=== PATIENT | female | born 1995 | race Caucasian/White ===

== ENCOUNTER 2016-12-14 12:47 | Emergency (ER) | payer OTHER ==
[2016-12-14] MEDS ORDERED: Sodium Chloride 0.9% 1,000 ML IV ONE (13:17)
--- NOTE | 2016-12-14 13:22 | ED Physician Chart ---
ED Chief Complaint/HPI - Patient Information Date Seen:: 12/14/16 Time Seen:: 13:18 Chief Complaint:: abd pain History of Present Illness:: pt here for 3 days of blood streaked stool and pain at LLQ of abdomen. ok motility. no urinary discomfort. no fever. no back pain. eating ok. no n/v/d. no hx of GI bleed. no back pain. no weakness menses regular. child born yrs ago. no irreg menses. Allergies:: Allergies Allergy/AdvReac Type Severity Reaction Status Date / Time No Known Allergies Allergy Verified 12/14/16 12:56 Vitals:: Vital Signs - 8 hr 12/14/16 12:47 Temp 98.1 F HR 76 RR 16 BP 110/66 O2 Sat % 100 Historian:: Patient ED Review of Systems - Review of Systems General/Constitutional: No fever, No chills, No weight loss, No weakness, No diaphoresis, No edema, No loss of appetite Skin: No skin lesions, No rash, No bruising Head: No headache, No light-headedness Eyes: No loss of vision, No pain, No diplopia ENT: No earache, No nasal drainage, No sore throat, No tinnitus Neck: No neck pain, No swelling, No thyromegaly, No stiffness, No mass noted Cardio Vascular: No chest pain, No palpitations, No PND, No orthopnea, No edema Pulmonary: No SOB, No cough, No sputum, No wheezing GI: No nausea, No vomiting, No diarrhea, Pain, No melena, No hematochezia, No constipation, No hematemesis, Other (blood streak stool) G/U: No dysuria, No frequency, No hematuria Musculoskeletal: No bone or joint pain, No back pain, No muscle pain Endocrine: No polyuria, No polydipsia Psychiatric: No prior psych history, No depression, No anxiety, No suicidal ideation Hematopoietic: No bruising, No lymphadenopathy Allergic/Immuno: No urticaria, No angioedema Neurological: No syncope, No focal symptoms, No weakness, No paresthesia, No headache, No seizure, No dizziness, No confusion, No vertigo ED Past Medical History - Past Medical History Past Medical History: No significant medical hx, Other () Social History: Non Smoker Medication: Reviewed Family Medical History - Family Member Mother History Unknown: Yes ED Physical Exam - Physical Examination General/Constitutional: Awake, Well-developed, well-nourished, Alert, No distress, GCS 15, Non-toxic appearing, Ambulatory Head: Atraumatic Eyes: Lids, conjuctiva normal, PERRL, EOMI Skin: Nl inspection, No rash, No skin lesions, No ecchymosis, Well hydrated, No lymphadenopathy ENMT: External ears, nose nl, Nasal exam nl, Lips, teeth, gums nl Neck: Nontender, Full ROM w/o pain, No JVD, No nuchal rigidity, No bruit, No mass, No stridor Respiratory: Nl effort/Exclusion, Clear to Auscultation, No Wheeze/Rhonchi/Rales Cardio Vascular: RRR, No murmur, gallop, rubs, NL S1 S2 GI: No organomegaly, No hernia, Normal BS's, Nondistended, No mass/bruits, No McBurney tenderness Other GI comments:: mild tndr LLQ. no masses. no rebound. nabs. : No CVA tenderness Extremities: No tenderness or effusion, Full ROM, normal strength in all extremities, No edema, Normal digits & nails Neuro/Psych: Alert/oriented, DTR's symmetric, Normal sensory exam, Normal motor strength, Judgement/insight normal, Mood normal, Normal gait, No focal deficits Misc: normal gait, Normal back, No paraspinal tenderness ED Labs/Radiology/EKG Results - Lab Results Results: Laboratory Tests 12/14/16 12/14/16 12/14/16 13:00 13:00 13:25 WBC 7.5 RBC 5.15 H Hgb 12.5 Hct 38.7 L MCV 75.3 L MCH 24.2 L MCHC Differential 32.1 RDW 13.9 Plt Count 145 L MPV 12.6 Neutrophils % 62.0 Lymphocytes % 30.7 Monocytes % 6.9 Eosinophils % 0.2 Basophils % 0.2 PT INR PTT (Actin FS) Sodium Potassium Chloride Carbon Dioxide Anion Gap BUN Creatinine Est GFR ( Amer) Est GFR (Non-Af Amer) BUN/Creatinine Ratio Glucose Calcium Total Bilirubin AST ALT Alkaline Phosphatase Total Protein Albumin Globulin Albumin/Globulin Ratio Urine Source CLEAN C Urine Color YELLOW Urine Clarity CLEAR Urine pH 6.0 Ur Specific [place] 1.025 Urine Protein NEGATIVE Urine Glucose (UA) NEGATIVE Urine Ketones NEGATIVE Urine Blood TRACE Urine Nitrate NEGATIVE Urine Bilirubin NEGATIVE Urine Urobilinogen 0.2 Ur Leukocyte Esterase NEGATIVE Urine RBC 5-10 H Urine WBC 0-2 Ur Epithelial Cells MODERATE Urine Bacteria FEW Urine Mucus FEW Urine Test NEGATIVE 12/14/16 12/14/16 13:25 13:25 WBC RBC Hgb Hct MCV MCH MCHC Differential RDW Plt Count MPV Neutrophils % Lymphocytes % Monocytes % Eosinophils % Basophils % PT 11.4 INR 1.09 PTT (Actin FS) 29.9 Sodium 133 L Potassium 3.6 Chloride 103 Carbon Dioxide 23.6 Anion Gap 10.0 BUN 12 Creatinine 0.5 L Est GFR ( Amer) > 60.0 Est GFR (Non-Af Amer) > 60.0 BUN/Creatinine Ratio 24.0 Glucose 90 Calcium 9.4 Total Bilirubin 0.8 AST 12 L ALT 10 Alkaline Phosphatase 40 Total Protein 7.4 Albumin 4.7 Globulin 2.7 Albumin/Globulin Ratio 1.7 Urine Source Urine Color Urine Clarity Urine pH Ur Specific [place] Urine Protein Urine Glucose (UA) Urine Ketones Urine Blood Urine Nitrate Urine Bilirubin Urine Urobilinogen Ur Leukocyte Esterase Urine RBC Urine WBC Ur Epithelial Cells Urine Bacteria Urine Mucus Urine Test - Radiology Results Results: ct bad/p - few mesenteric nodes, diverticulosis (cant exclude focal diverticulitis less likely), small free fluid in pelvis w suspicion of ruptured rt ovarian cyst (pt has no pain on rt...and very good mobility in general. pain on l is mild) ED Septic Shock - . Is Septic Shock (SBP<90, OR Lactate>4 mmol\L) present?: No - <6hrs of presentation: Vital Signs: Vital Signs - 8 hr 12/14/16 12:47 Temp 98.1 F HR 76 RR 16 BP 110/66 O2 Sat % 100 ED Reassessment (Disposition) - Reassessment Reassessment:: rectal exam performed w LUCAS Landers present. pt has a obvious punctate bleed extra- anal whick expressesd bright red blood when anus is stretched for close view. stool from internal to the punctate bleed seems nrml in color w no gross blood ...although it does test sltly pos for hemeoccult blood. no rectal mass. results reviewed w pt. plan discussed w pt. offered her option of close fu w pmd tmrw vs admit for observation. US machine is broken and unavailable rt now so cant do US. pt aware. offered pt may return at any time if worse. GI bleed seems explained by exam finding. pt appears stable now and not in great discomfort. will give rx for levaquin and 1st dose as precaution given could be assoc mild diverticulitis however I suspect this is a overread by hunter ruiz. pt to return if fever, worse pains, weakness, n/v/d or else worse.. Reassessment Condition:: Improved - Diagnosis Diagnosis:: 1 rectal fissure 2 possible early diverticulitis 3 possible ruptured ovarian cyst - Aftercare/Follow up Instructions Aftercare/Follow-Up Instructions:: Counseled pt regarding lab results/diagnosis & need follow up - Patient Disposition Discharge/Transfer:: Home Condition at Disposition:: Improved
[2016-12-14 13:33] LABS: URINE BILIRUBIN NEGATIVE (NEGATIVE); URINE BLOOD TRACE (NEGATIVE); URINE GLUCOSE (UA) NEGATIVE (NEGATIVE); URINE KETONE NEGATIVE (NEGATIVE); URINE PROTEIN NEGATIVE (NEGATIVE); URINE UROBILINOGEN 0.2 E.U./dL (0.2 - 1.0)
[2016-12-14 13:34] LABS: URINE COLOR YELLOW
[2016-12-14 13:37] LABS: URINE BACTERIA FEW /hpf (NONE SEEN); URINE EPITHELIAL CELLS MODERATE /lpf (FEW); URINE WBC 0-2 /hpf (0-5)
[2016-12-14 13:43] LABS: % BASOPHILS 0.2 % (0.0-2.0); % EOSINOPHILS 0.2 % (0.0-5.0); % LYMPHOCYTES 30.7 % (20.0-50.0); % MONOCYTES 6.9 % (2.0-10.0); HEMATOCRIT 38.7 % (41.0-60); HEMOGLOBIN 12.5 gm/dL (12-16); MEAN CELL VOLUME 75.3 fl (81-100); MEAN CORPUSCULAR HEMOGLOBIN 24.2 pg (27.0-31.0); MEAN CORPUSCULAR HGB CONC 32.1 pg (28.0-36.0); MEAN PLATELET VOLUME 12.6 fl; NEUTROPHILE ABSOLUTE 4.7 Th/cmm (1.8-8.0); PLATELET COUNT 145 Th/cmm (150-400); RED BLOOD COUNT 5.15 Mil/cmm (3.80-5.10); RED CELL DISTRIBUTION WIDTH 13.9 % (11.5-20.0); WHITE BLOOD COUNT 7.5 Th/cmm (4.8-10.8)
[2016-12-14 13:49] LABS: INR 1.09 (0.5-1.4); PROTHROMBIN TIME (TEST) 11.4 SECONDS (9.5-11.5)
[2016-12-14 13:53] LABS: ALB/GLOB RATIO 1.7 (1.0-1.8); ALKALINE PHOSPHATASE 40 U/L (34-104); BILIRUBIN,TOTAL 0.8 mg/dL (0.3-1.0); BUN - UREA NITROGEN 12 mg/dL (7-25); CALCIUM SERUM 9.4 mg/dL (8.6-10.3); CARBON DIOXIDE 23.6 mEq/L (21.0-31.0); CHLORIDE 103 mEq/L (98-107); CREATININE - SERUM 0.5 mg/dL (0.6-1.2); GLUCOSE 90 mg/dL (70-105); POTASSIUM SERUM 3.6 mEq/L (3.5-5.1); SGOT 12 U/L (13-39); SGPT/ALT 10 U/L (7-52); SODIUM SERUM 133 mEq/L (136-145)
--- NOTE | 2016-12-14 14:55 | Diagnostic Imaging Report ---
CT abdomen and pelvis without intravenous contrast Indication: Left lower quadrant pain Comparison: None, Technique: Axial images were obtained from the lung bases to the bilateral proximal femurs without IV contrast. Coronal reconstructions were made. total DLP: [id number], CTDI9.9 FINDINGS: Atelectatic and hypoventilatory changes of the lung bases are noted. Assessment of the solid organs is limited due to lack of IV contrast. No evidence of focal hepatic or splenic lesions. No focal pancreatic or adrenal lesions. No hydronephrosis or focal renal lesions. There there is small amount of free fluid within the pelvis. The mild diverticulosis. Right adnexal fullness of low-density is noted. No evidence of appendicitis. There is mild generalized prominence of the uterus. No free air or free fluid. Few borderline prominent mesenteric lymph nodes are noted. The osseous structures demonstrate no acute abnormalities. IMPRESSION: Small amount of free fluid within the pelvis. This may be on a physiological basis or possibly due to a ruptured right adnexal cyst. Right adnexal fullness is noted with mild generalized prominence of uterus. Recommend short-term follow-up ultrasound further assessment. Diverticulosis. Focal diverticulitis and small amount of free fluid within the sigmoid colon would be considered less likely but cannot be completely excluded.. Clinical correlation recommended. Few borderline prominent mesenteric lymph nodes possibly due to mesenteric adenitis.
== END 2016-12-14 15:57 | disposition home or self-care (01) ==
LOC: ER 12:47
DX: R10.32 Left lower quadrant pain (principal)
CPT/HCPCS: 36415-UA; 80053-TC; 81001-TC; 81025-TC; 85025-TC; 85610-TC; 86850-TC; 86900-TC; 86901-TC; J7030

== ENCOUNTER 2017-11-11 18:55 | Emergency (ER) | payer OTHER ==
[2017-11-11 19:54] LABS: % BASOPHILS 0.8 % (0.0-2.0); % EOSINOPHILS 0.4 % (0.0-5.0); % LYMPHOCYTES 31.9 % (20.0-50.0); % MONOCYTES 6.8 % (2.0-10.0); % NEUTROPHILS 60.1 % (40.0-80.0); BASOPHILE ABSOLUTE 0.1 Th/cumm (0-0.2); HEMOGLOBIN 11.7 gm/dL (12-16); LYMPHOCYTE ABSOLUTE 3.2 Th/cmm (1.5-3.0); MEAN CELL VOLUME 69.6 fl (81-100); MEAN CORPUSCULAR HEMOGLOBIN 22.6 pg (27.0-31.0); MEAN CORPUSCULAR HGB CONC 32.4 pg (28.0-36.0); MEAN PLATELET VOLUME 11.9 fl; MONOCYTE ABSOLUTE 0.7 Th/cmm (0.3-1.0); PLATELET COUNT 216 Th/cmm (150-400); RED BLOOD COUNT 5.17 Mil/cmm (3.80-5.10)
[2017-11-11 20:09] LABS: PROTHROMBIN TIME (TEST) 10.4 SECONDS (9.5-11.5)
[2017-11-11 20:20] LABS: URINE SOURCE CLEAN C
[2017-11-11 20:24] LABS: URINE BILIRUBIN NEGATIVE (NEGATIVE); URINE BLOOD TRACE (NEGATIVE); URINE GLUCOSE (UA) NEGATIVE (NEGATIVE); URINE KETONE NEGATIVE (NEGATIVE); URINE LEUKOCYTE ESTERASE NEGATIVE (NEGATIVE); URINE MICROSCOPIC INDICATED? YES; URINE NITRATE NEGATIVE (NEGATIVE); URINE PROTEIN NEGATIVE (NEGATIVE); URINE UROBILINOGEN 0.2 E.U./dL (0.2 - 1.0)
[2017-11-11 20:31] LABS: URINE CLARITY CLEAR (CLEAR); URINE COLOR YELLOW
[2017-11-11 20:32] LABS: AMPHETAMINE URINE NEGATIVE (NEGATIVE); BARBITURATES URINE NEGATIVE (NEGATIVE); COCAINE METABOLITE QUAL URINE NEGATIVE (NEGATIVE); METHADONE URINE NEGATIVE (NEGATIVE); METHAMPHETAMINES QUAL URINE NEGATIVE (NEGATIVE); OPIATES (MORPHINE) QUAL. URINE NEGATIVE (NEGATIVE); PHENCYCLIDINE (PCP) URINE NEGATIVE (NEGATIVE); TRICYCLICS (TCA) QUAL. URINE NEGATIVE (NEGATIVE); URINE BACTERIA NONE SEEN /hpf (NONE SEEN); URINE EPITHELIAL CELLS RARE /lpf (FEW); URINE RBC 0-2 /hpf (0-5); URINE WBC NONE SEEN /hpf (0-5)
[2017-11-11 20:33] LABS: BENZODIAZEPINES QUAL URINE NEGATIVE (NEGATIVE); CANNABINOID THC POSITIVE (NEGATIVE)
--- NOTE | 2017-11-11 20:52 | ED Physician Chart ---
ED Chief Complaint/HPI - Patient Information Date Seen:: 11/11/17 Time Seen:: 19:05 Chief Complaint:: LLQ pain and blood per rectum History of Present Illness:: LLQ pain and blood per rectum same presentation in 11/2016. Patient never went for follow up although she was told to do so. Siter has colitis. Denies eating popcorn, nuts or seeds. Allergies:: Allergies Allergy/AdvReac Type Severity Reaction Status Date / Time No Known Allergies Allergy Verified 12/14/16 12:56 Vitals:: Vital Signs - 8 hr 11/11/17 19:05 Temp 98.1 F HR 64 RR 18 BP 111/67 O2 Sat % 100 Historian:: Patient Review:: Nurse's Note Reviewed, Old Chart Reviewed ED Review of Systems - Review of Systems General/Constitutional: No fever, No chills, No weight loss, No weakness, No diaphoresis, No edema, No loss of appetite Skin: No skin lesions, No rash, No bruising Head: No headache, No light-headedness Eyes: No loss of vision, No pain, No diplopia ENT: No earache, No nasal drainage, No sore throat, No tinnitus Neck: No neck pain, No swelling, No thyromegaly, No stiffness, No mass noted Cardio Vascular: No chest pain, No palpitations, No PND, No orthopnea, No edema Pulmonary: No SOB, No cough, No sputum, No wheezing GI: Pain, Other (blood per rectum.) G/U: No dysuria, No frequency, No hematuria Musculoskeletal: No bone or joint pain, No back pain, No muscle pain Endocrine: No polyuria, No polydipsia Psychiatric: No prior psych history, No depression, No anxiety, No suicidal ideation Hematopoietic: No bruising, No lymphadenopathy Allergic/Immuno: No urticaria, No angioedema Neurological: No syncope, No focal symptoms, No weakness, No paresthesia, No headache, No seizure, No dizziness, No confusion, No vertigo ED Past Medical History - Past Medical History Obtainable: Yes Past Medical History: No significant medical hx, Other (ovarian cyst on right that ruptured in 11/2016) Family Medical History - Family Member Mother History Unknown: Yes ED Physical Exam - Physical Examination General/Constitutional: Awake, Well-developed, well-nourished, Alert, No distress, GCS 15, Non-toxic appearing, Ambulatory Head: Atraumatic Eyes: Lids, conjuctiva normal, PERRL, EOMI Respiratory: Nl effort/Exclusion, Clear to Auscultation, No Wheeze/Rhonchi/Rales Cardio Vascular: RRR, No murmur, gallop, rubs, NL S1 S2 GI: Rectum exam nl Other GI comments:: minimal to non-existent tenderness in the left lower quadrant. No peritoneal signs. small amount of brown stool on glove. : No CVA tenderness Neuro/Psych: Alert/oriented, Normal motor strength, Judgement/insight normal, Mood normal, Normal gait, No focal deficits Misc: Normal back, No paraspinal tenderness ED Labs/Radiology/EKG Results - Lab Results Results: Laboratory Tests 11/11/17 11/11/17 11/11/17 19:18 19:18 19:18 WBC RBC Hgb Hct MCV MCH MCHC Differential RDW Plt Count MPV Neutrophils % Lymphocytes % Monocytes % Eosinophils % Basophils % PT INR PTT (Actin FS) Urine Source CLEAN C Urine Color YELLOW Urine Clarity CLEAR Urine pH 6.0 Ur Specific [place] 1.010 Urine Protein NEGATIVE Urine Glucose (UA) NEGATIVE Urine Ketones NEGATIVE Urine Blood TRACE Urine Nitrate NEGATIVE Urine Bilirubin NEGATIVE Urine Urobilinogen 0.2 Ur Leukocyte Esterase NEGATIVE Urine RBC 0-2 Urine WBC NONE SEEN Ur Epithelial Cells RARE Urine Bacteria NONE SEEN Urine Test NEGATIVE Urine Opiates Screen NEGATIVE Urine Methadone Screen NEGATIVE Ur Barbiturates Screen NEGATIVE Ur Tricyclics Screen NEGATIVE Ur Phencyclidine Scrn NEGATIVE Amphetamines Screen NEGATIVE U Methamphetamines Scrn NEGATIVE U Benzodiazepines Scrn NEGATIVE U Cocaine Metab Screen NEGATIVE U Cannabinoids Screen POSITIVE H 11/11/17 11/11/17 19:40 19:40 WBC 10.0 RBC 5.17 H Hgb 11.7 L Hct 36.0 L MCV 69.6 L MCH 22.6 L MCHC Differential 32.4 RDW 15.0 Plt Count 216 MPV 11.9 Neutrophils % 60.1 Lymphocytes % 31.9 Monocytes % 6.8 Eosinophils % 0.4 Basophils % 0.8 PT 10.4 INR 1.00 PTT (Actin FS) 28.1 Urine Source Urine Color Urine Clarity Urine pH Ur Specific [place] Urine Protein Urine Glucose (UA) Urine Ketones Urine Blood Urine Nitrate Urine Bilirubin Urine Urobilinogen Ur Leukocyte Esterase Urine RBC Urine WBC Ur Epithelial Cells Urine Bacteria Urine Test Urine Opiates Screen Urine Methadone Screen Ur Barbiturates Screen Ur Tricyclics Screen Ur Phencyclidine Scrn Amphetamines Screen U Methamphetamines Scrn U Benzodiazepines Scrn U Cocaine Metab Screen U Cannabinoids Screen ED Assessment - Assessment General Assessment: resting comfortably. playing on her smart phone. hemoccult negative (brown stool was on glove). ED Septic Shock - . Is Septic Shock (SBP<90, OR Lactate>4 mmol\L) present?: No - <6hrs of presentation: Vital Signs: Vital Signs - 8 hr 11/11/17 19:05 Temp 98.1 F HR 64 RR 18 BP 111/67 O2 Sat % 100 ED Reassessment (Disposition) - Reassessment Reassessment Condition:: Unchanged - Diagnosis Diagnosis:: Left lower quadrant pain, minimal to non-existent. H/o blood per rectum. Will place patient on po cipro and po flagyl for presumed early diverticulitis. - Aftercare/Follow up Instructions Notes:: follow up with PCP for outpatient workup including colonoscopy especially given sister's h/o colitis. Time given off from work Medication Prescribed:: flagyl 500mg po bid ciprofloxacin 500 mg po bid - Patient Disposition Discharge/Transfer:: Home Condition at Disposition:: Stable, Unchanged
== END 2017-11-11 21:10 | disposition home or self-care (01) ==
LOC: ER 18:55
DX: K62.5 Hemorrhage of anus and rectum (principal); R10.32 Left lower quadrant pain
CPT/HCPCS: 99284; 82270; 36415; 80307; 85025; 85610; 81025; 81001; Q0162; Z7502